=== PATIENT | female | born 1995 | race Caucasian/White ===

== ENCOUNTER 2020-03-13 14:02 | Emergency (ER) | payer OTHER ==
[~2020-03-13] VITALS: Ht 170.2 cm; Wt 57.4 kg
[2020-03-13 14:08] VITALS: BP 115/66
[2020-03-13 15:06] LABS: MICROSCOPIC NOT IND
--- NOTE | 2020-03-13 15:08 | NUR ---
UA SENT. PT HAS CO UTI SYMPTOMS
[2020-03-13 15:41] LABS: HCG UR SG 1.018 (1.003-1.030)
--- NOTE | 2020-03-13 16:20 | NUR ---
Patient/Caregiver given discharge instructions and they have confirmed that they understand the instructions. Patient ambulatory with steady gait.
== END 2020-03-13 16:29 | disposition home or self-care (01) ==
LOC: ED 14:39
DX: N92.4 Excessive bleeding in the premenopausal period (principal); N93.8 Other specified abnormal uterine and vaginal bleeding; R11.0 Nausea
CPT/HCPCS: 81003; 81025; 99283